=== PATIENT | male | born 1940 | race Caucasian/White ===

== ENCOUNTER 2018-01-23 10:53 | Outpatient (CLI) | payer OTHER ==
--- NOTE | 2018-01-23 11:59 | US ---
EXAM: Renal ultrasound HISTORY: Right flank pain COMPARISON: None. FINDINGS: Real time evaluation of the kidneys was performed. The right kidney measures 11.8 cm in i ts greatest length. The left kidney measures 11.4 cm. Renal cortical thickness and echogenicity are appropriate. There is no evidence of mass , nephrolithiasis or hydronephrosis. Scans of the pelvis revealed poorly distended bladder which is not well evaluated. IMPRESSION: Normal renal ultrasound
== END 2018-01-23 10:54 | disposition home or self-care (01) ==
LOC: RAD 10:53
PROVIDERS: ATTEND Family Medicine
DX: R10.9 Unspecified abdominal pain (principal); M54.9 Dorsalgia, unspecified
CPT/HCPCS: 76770

== ENCOUNTER 2018-01-30 08:56 | Outpatient (CLI) ==
--- NOTE | 2018-01-30 10:23 | CT ---
EXAM: CT abdomen pelvis without contrast HISTORY: Abdominal pain and chronic kidney disease with left flank pain COMPARISON: Renal ultrasound 01/23/2018 all all all begin TECHNIQUE: Serial axial images of the abdomen pelvis were performed from the lung bases through the inferior pelvis without contrast. These were viewed in multiple planes. FINDINGS: The lung bases demonstrate mild chronic obstructive pulmonary disease. This evaluation is limited due to lack of contrast. The liver is unremarkable. The gallbladder is n ormal. The adrenal glands are normal. Kidneys are normal. The spleen demonstrates calcified granul omas. The pancreas is unremarkable. The stomach is normal. There are surgical clips and the duoden um. The small bowel in the abdomen pelvis is unremarkable. The colon demonstrates mild diverticulosis an d minimal ground-glass in the distal sigmoid as seen on image [id number]. There is no visualized abscess or free air. The appendix is not visualized. There is a fat-containing umbilical hernia. Urinary blad maury is distended. Prostate is normal. The osseous structures demonstrate degenerative disease of th e spine and postsurgical changes with posterior fusion hardware and disc spacer material at L3-L4. IMPRESSION: 1. Sigmoid colon wall thickening with diverticulosis and minimal ground-glass may represent early div erticulitis/subtle inflammation. No abscess or free air is identified. 2. Fat containing umbilical hernia. 3. 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
== END 2018-01-30 08:57 | disposition home or self-care (01) ==
LOC: RAD 08:56
PROVIDERS: ATTEND Family Medicine
DX: N18.3 Chronic kidney disease, stage 3 (moderate) (principal); M47.26 Other spondylosis with radiculopathy, lumbar region; M47.16 Other spondylosis with myelopathy, lumbar region; M47.9 Spondylosis, unspecified; M51.37 Other intervertebral disc degeneration, lumbosacral region; M43.16 Spondylolisthesis, lumbar region; M48.061 Spinal stenosis, lumbar region without neurogenic claudication